=== PATIENT | female | born 1960 | race Caucasian/White ===

== ENCOUNTER 2022-05-17 06:02 | Emergency (ER) | payer OTHER ==
[2022-05-17 07:13] LABS: URINE APPEARANCE CLEAR; URINE BILIRUBIN NEGATIVE (NEGATIVE); URINE BLOOD NEGATIVE (NEGATIVE); URINE COLOR YELLOW; URINE GLUCOSE NEGATIVE (NEGATIVE); URINE KETONE NEGATIVE (NEGATIVE); URINE LEUKOCYTE ESTERASE NEGATIVE (NEGATIVE); URINE NITRATE NEGATIVE (NEGATIVE); URINE PROTEIN(semi-quant) NEGATIVE (NEGATIVE); URINE UROBILINOGEN NORMAL (NORMAL); URINE WBC 0-1 /hpf (0-3)
[2022-05-17 07:19] LABS: BASO # 0.03 K/mm3 (0.02-0.10); EOS # 0.54 K/mm3 (0.04-0.40); EOS % 7.3 % (1.0-5.0); HEMATOCRIT 45.6 % (37.0-47.0); HEMOGLOBIN 14.7 g/dL (12.5-16.0); LYMPH# 1.99 K/mm3 (1.50-4.00); MEAN CELL VOLUME 97 fl (78-100); MEAN CORPUSCULAR HEMOGLOBIN 31 pg (27-31); MEAN CORPUSCULAR HGB CONC 32 g/dL (33-37); MEAN PLATELET VOLUME 10.5 fl (7.4-10.4); MONO # 0.65 K/mm3 (0.20-0.80); NEU # 4.17 K/mm3 (1.40-6.50); PLATELET COUNT 247 K/mm3 (130-400); RED BLOOD COUNT 4.71 M/mm3 (4.10-5.30); RED CELL DISTRIBUTION WIDTH 13.5 % (11.5-14.5); WHITE BLOOD COUNT 7.4 K/mm3 (4.8-10.8)
[2022-05-17 07:21] LABS: ALBUMIN 3.9 g/dL (3.4-4.8)
[2022-05-17 07:22] LABS: POTASSIUM 3.8 mmol/L (3.5-5.1)
[2022-05-17 07:23] LABS: CALCIUM 9.5 mg/dL (8.3-10.5)
[2022-05-17 07:24] LABS: TOTAL PROTEIN 6.3 g/dL (6.2-8.1)
[2022-05-17 07:26] LABS: TOTAL BILIRUBIN 0.4 mg/dL (0.2-1.2)
[2022-05-17 14:26] VITALS: BP 129/90
== END 2022-05-17 14:13 | disposition short-term general hospital (02) ==
LOC: ED 06:02
PROVIDERS: Family Medicine
DX: R56.9 Unspecified convulsions (principal); Z28.310 Unvaccinated for COVID-19
CPT/HCPCS: J1953; Q9967